=== PATIENT | female | born 1960 | race Caucasian/White ===

== ENCOUNTER 2016-10-26 07:14 | Emergency (ER) | payer OTHER ==
[2016-10-26 07:22] VITALS: RESP 18
[2016-10-26] MEDS ORDERED: ONDANSETRON DISINTEGRATING 4 MG TAB PO ONE (07:27)
--- NOTE | 2016-10-26 07:46 | EDPHY ---
H & P Time Seen by Provider: 10/26/16 07:32 HPI/ROS: CHIEF COMPLAINT: [ ] HISTORY OF PRESENT ILLNESS: [ ] REVIEW OF SYSTEMS: PAST MEDICAL HISTORY: Social history: General Appearance: [Alert and conversant, cooperative.] Emergency Department course/MDM: Smoking Status: Former smoker Constitutional: Initial Vital Signs Temperature (C) 36.7 C 10/26/16 07:18 Heart Rate 58 L 10/26/16 07:18 Respiratory Rate 18 10/26/16 07:18 Blood Pressure 185/99 H 10/26/16 07:18 O2 Sat (%) 97 10/26/16 07:18 O2 Delivery Mode Room Air Allergies/Adverse Reactions: gluten Allergy (Verified 10/26/16 07:18) Home Medications: Medication Instructions Recorded Vitamins 10/26/16 MDM/Departure - MDM Medications Given: Discontinued Medications Ondansetron HCl (Zofran Odt) 4 mg PO EDNOW ONE Stop: 10/26/16 07:28 Last Admin: 10/26/16 07:46 Dose: Not Given - Depart Referrals: NONE *PRIMARY CARE P,. [Primary Care Provider] - As per Instructions
[2016-10-26] MEDS ORDERED: NS 1,000 ML IV ONE ×2 (08:10→09:23)
[2016-10-26] MEDS ORDERED: HYDROmorphONE/DILAUDID 1 MG/ML SYR IVP ONE ×2 (08:10→10:32)
[2016-10-26 08:12] LABS: LEUKOCYTE ESTERASE,URINE NEGATIVE (NEGATIVE)
[2016-10-26 08:14] LABS: COLOR ORANGE
[2016-10-26] MEDS ORDERED: ONDANSETRON 4 MG/2 ML VIAL ONE (08:26)
[2016-10-26 08:29] LABS: MUCUS TRACE /lpf (NONE-1+)
[2016-10-26] MEDS ORDERED: ONDANSETRON 4 MG/2 ML VIAL IVP ONE ×2 (08:40→10:32)
[2016-10-26 08:42] LABS: % IMMATURE GRANULYOCYTES 0.1 % (0.0-1.1); ABSOLUTE IMMATURE GRANULOCYTES 0.01 10^3/uL (0.00-0.10); ADD DIFF? NO; ADD MORPH? NO; ADD SCAN? NO; ATYPICAL LYMPHOCYTE FLAG 10 (0-99); FRAGMENT RBC FLAG 0 (0-99); HEMATOCRIT 40.3 % (38.0-47.0); HEMOGLOBIN 13.6 g/dL (12.6-16.3); LEFT SHIFT FLG 0 (0-99); LIPEMIA HEMOLYSIS FLAG 80 (0-99); MEAN CELL HEMOGLOBIN 30.8 pg (27.9-34.1); MEAN CELL HEMOGLOBIN CONCENTR. 33.7 g/dL (32.4-36.7); MEAN CELL VOLUME 91.2 fL (81.5-99.8); MEAN PLATELET VOLUME 10.4 fL (8.7-11.7); PLATELET CLUMPS FLAG 0 (0-99); PLATELET COUNT 190 10^3/uL (150-400); RED BLOOD CELL COUNT 4.42 10^6/uL (4.18-5.33); RED CELL DISTRIBUTION WIDTH 12.4 % (11.5-15.2)
[2016-10-26 08:55] LABS: ALANINE AMINOTRANSFERASE 36 IU/L (9-52); ALBUMIN 4.2 g/dL (3.5-5.0); ALKALINE PHOSPHATASE 81 IU/L (38-126); ANION GAP 10 mEq/L (8-16); ASPARTATE AMINOTRANSFERASE 29 IU/L (14-46); BILIRUBIN,TOTAL 0.7 mg/dL (0.1-1.4); BILIRUBIN-UNCONJUGATED 0.7 mg/dL (0.0-1.1); CALCIUM 9.3 mg/dL (8.5-10.4); CARBON DIOXIDE 25 mEq/l (22-31); CHLORIDE 102 mEq/L (97-110); CREATININE 0.8 mg/dL (0.6-1.0); GLOMERULAR FILTRATION RATE > 60; GLUCOSE 139 mg/dL (70-100); POTASSIUM 4.1 mEq/L (3.5-5.2); SODIUM 137 mEq/L (134-144)
[2016-10-26] MEDS ORDERED: IOPAMIDOL (ISOVUE-300) 100 ML BTL IV ONE (09:35)
--- NOTE | 2016-10-26 10:30 | EDPHY ---
H & P Stated Complaint: lower abd pain since last night, nausea, dysuria - Personal History Current Tetanus/Diphtheria Vaccine: No Current Tetanus Diphtheria and Acellular Pertussis (TDAP): No - Medical/Surgical History Hx Asthma: No Hx Chronic Respiratory Disease: No Hx Diabetes: No Hx Cardiac Disease: No Hx Renal Disease: No Hx Cirrhosis: No Hx Alcoholism: No Hx HIV/AIDS: No Hx Splenectomy or Spleen Trauma: No Other PMH: pmh- uti's - Social History Smoking Status: Former smoker Time Seen by Provider: 10/26/16 07:32 HPI/ROS: Chief complaint: Urinary symptoms History of present illness: This is a 56-year-old female who presents to the emergency department for evaluation of urinary symptoms. Patient reports the onset of symptoms last night. She reports urinary frequency and urinary hesitancy. She has had associated dysuria. She further reports associated nausea and vomiting. She has developed abdominal discomfort, she describes a fullness in the abdomen most notably on the right. She denies precipitating factors. She denies alleviating factors. She denies other associated signs or symptoms including no fevers, no diarrhea or constipation. Review of systems: A 10 point review of systems was obtained and other than described above was negative (John Paul Zaidi) - Physical Exam Exam: General Appearance: Alert, nontoxic. Eyes: Pupils equal and round no pallor or injection. ENT, Mouth: Mucous membranes moist. Respiratory: There are no retractions, lungs are clear to auscultation. Cardiovascular: Regular rate and rhythm. Gastrointestinal: Bowel sounds are normal. Abdomen is soft and nondistended. She reports a fullness most pronounced in the right lower quadrant on palpation although not specific tenderness. There are no peritoneal signs. Genitourinary: No CVA tenderness. Neurological: Alert and oriented x4. Strength and sensation intact and symmetrical. Skin: Warm and dry, no rashes. Musculoskeletal: Neck is supple non tender. Extremities are symmetrical, full range of motion. Psychiatric: Patient is oriented X 3, there is no agitation. (John Paul Zaidi) Constitutional: Initial Vital Signs Temperature (C) 36.7 C 10/26/16 07:18 Heart Rate 58 L 10/26/16 07:18 Respiratory Rate 18 10/26/16 07:18 Blood Pressure 185/99 H 10/26/16 07:18 O2 Sat (%) 97 10/26/16 07:18 O2 Delivery Mode Room Air Allergies/Adverse Reactions: gluten Allergy (Verified 10/26/16 07:18) Home Medications: Medication Instructions Recorded Hydrocodone/APAP 5/325 [Troy 1 tab PO Q4 #10 tab 10/26/16 5/325 (*)] Ondansetron Odt [Zofran Odt 4 mg 4 mg PO Q4 #10 tab 10/26/16 (*)] Vitamins 10/26/16 Medical Decision Making - Diagnostics Imaging: Right lower quadrant ultrasound nondiagnostic CT scan of the abdomen pelvis reveals a 4 mm right-sided stone at the right UVJ (John Paul Zaidi) ED Course/Re-evaluation: Patient seen in conjunction with my secondary supervising physician Dr. Pteros Her. Patient presents to the emergency department for evaluation of urinary symptoms and abdominal fullness. Ultimately she appears to be suffering from a kidney stone. She has been symptomatically treated and is feeling well. Tolerating oral challenges. She is comfortable being discharged home. She will be discharged home with pain medication, nausea medicine and a urinary strainer. We have discussed the use of Flomax to help facilitate the passage of the stone, she has declined the medication. She is referred to Urology for further evaluation and care. Strict return precautions are given. Patient voiced understanding and agreement with plan. (John Paul Zaidi) Differential Diagnosis: Included but not limited to urinary tract infection, kidney stone, appendicitis , colitis, diverticulitis, pelvic pathology including ovarian cysts and pelvic infections (John Paul Zaidi) Other Provider: PHYSICIAN DOCUMENTATION: The patient was evaluated and managed by the Physician General Scrap Worker and myself. I have reviewed the chart and agree with the findings and plan of care as documented. In addition, I examined the patient myself at 1029. History confirmed as right-sided abdominal pain, starting yesterday. Has some urinary symptoms. Physical findings as follows: Abdomen nontender. Findings of renal colic seen on CT discussed in detail with the patient. She is comfortable and her symptoms have been managed she is agreeable with outpatient management. She is informed that it is likely although not certain that she will pass the stone without further intervention. I am the secondary supervising physician. (Petros Her) - Data Points Laboratory Results: Laboratory Results 10/26/16 08:30 10/26/16 08:30 10/26/16 10/26/16 10/26/16 08:30 08:30 07:17 WBC 7.67 10^3/uL 10^3/uL (3.80-9.50) RBC 4.42 10^6/uL 10^6/uL (4.18-5.33) Hgb 13.6 g/dL g/dL (12.6-16.3) Hct 40.3 % % (38.0-47.0) MCV 91.2 fL fL (81.5-99.8) MCH 30.8 pg pg (27.9-34.1) MCHC 33.7 g/dL g/dL (32.4-36.7) RDW 12.4 % % (11.5-15.2) Plt Count 190 10^3/uL 10^3/uL (150-400) MPV 10.4 fL fL (8.7-11.7) Neut % (Auto) 73.2 % % (39.3-74.2) Lymph % (Auto) 16.3 % % (15.0-45.0) Davie % (Auto) 8.5 % % (4.5-13.0) Eos % (Auto) 1.2 % % (0.6-7.6) Baso % (Auto) 0.7 % % (0.3-1.7) Nucleat RBC Rel Count 0.0 % % (0.0-0.2) Absolute Neuts (auto) 5.62 10^3/uL 10^3/uL (1.70-6.50) Absolute Lymphs (auto) 1.25 10^3/uL 10^3/uL (1.00-3.00) Absolute Monos (auto) 0.65 10^3/uL 10^3/uL (0.30-0.80) Absolute Eos (auto) 0.09 10^3/uL 10^3/uL (0.03-0.40) Absolute Basos (auto) 0.05 10^3/uL 10^3/uL (0.02-0.10) Absolute Nucleated RBC 0.00 10^3/uL 10^3/uL (0-0.01) Immature Gran % 0.1 % % (0.0-1.1) Immature Gran # 0.01 10^3/uL 10^3/uL (0.00-0.10) Sodium 137 mEq/L mEq/L (134-144) Potassium 4.1 mEq/L mEq/L (3.5-5.2) Chloride 102 mEq/L mEq/L (97-110) Carbon Dioxide 25 mEq/l mEq/l (22-31) Anion Gap 10 mEq/L mEq/L (8-16) BUN 15 mg/dL mg/dL (7-23) Creatinine 0.8 mg/dL mg/dL (0.6-1.0) Estimated GFR > 60 Glucose 139 mg/dL H mg/dL (70-100) Calcium 9.3 mg/dL mg/dL (8.5-10.4) Total Bilirubin 0.7 mg/dL mg/dL (0.1-1.4) Conjugated Bilirubin 0.0 mg/dL mg/dL (0.0-0.5) Unconjugated Bilirubin 0.7 mg/dL mg/dL (0.0-1.1) AST 29 IU/L IU/L (14-46) ALT 36 IU/L IU/L (9-52) Alkaline Phosphatase 81 IU/L IU/L (38-126) Total Protein 7.0 g/dL g/dL (6.3-8.2) Albumin 4.2 g/dL g/dL (3.5-5.0) Lipase 124.0 IU/L IU/L (23-300) Urine Color Urine Appearance Urine pH Ur Specific Dittmer Urine Protein Urine Ketones Urine Blood Urine Nitrate Urine Bilirubin Urine Urobilinogen Ur Leukocyte Esterase Urine RBC Urine WBC Ur Epithelial Cells Hyaline Casts Urine Mucus Urine Glucose Urine Test NEGATIVE 10/26/16 07:17 WBC RBC Hgb Hct MCV MCH MCHC RDW Plt Count MPV Neut % (Auto) Lymph % (Auto) Davie % (Auto) Eos % (Auto) Baso % (Auto) Nucleat RBC Rel Count Absolute Neuts (auto) Absolute Lymphs (auto) Absolute Monos (auto) Absolute Eos (auto) Absolute Basos (auto) Absolute Nucleated RBC Immature Gran % Immature Gran # Sodium Potassium Chloride Carbon Dioxide Anion Gap BUN Creatinine Estimated GFR Glucose Calcium Total Bilirubin Conjugated Bilirubin Unconjugated Bilirubin AST ALT Alkaline Phosphatase Total Protein Albumin Lipase Urine Color ORANGE Urine Appearance CLEAR Urine pH 5.0 (5.0-7.5) Ur Specific Dittmer 1.010 (1.002-1.030) Urine Protein TNP Urine Ketones NEGATIVE (NEGATIVE) Urine Blood TNP Urine Nitrate TNP Urine Bilirubin NEGATIVE (NEGATIVE) Urine Urobilinogen TNP Ur Leukocyte Esterase NEGATIVE (NEGATIVE) Urine RBC 5-10 /hpf H /hpf (0-3) Urine WBC 3-5 /hpf H /hpf (0-3) Ur Epithelial Cells TRACE /lpf /lpf (NONE-1+) Hyaline Casts 1-5 /lpf /lpf (0-1) Urine Mucus TRACE /lpf /lpf (NONE-1+) Urine Glucose NEGATIVE (NEGATIVE) Urine Test Medications Given: Discontinued Medications Hydromorphone HCl (Dilaudid) 0.5 mg IVP EDNOW ONE Stop: 10/26/16 08:11 Last Admin: 10/26/16 08:22 Dose: 0.5 mg Hydromorphone HCl (Dilaudid) 0.5 mg IVP EDNOW ONE Stop: 10/26/16 10:33 Last Admin: 10/26/16 10:42 Dose: 0.5 mg Sodium Chloride (Ns) 1,000 mls @ 0 mls/hr IV ONCE ONE PRN Reason: Wide Open Stop: 10/26/16 08:11 Last Admin: 10/26/16 08:20 Dose: 1,000 mls Sodium Chloride (Ns) 1,000 mls @ 0 mls/hr IV ONCE ONE PRN Reason: Wide Open Stop: 10/26/16 09:24 Last Admin: 10/26/16 09:39 Dose: 1,000 mls Ketorolac Tromethamine (Toradol) 30 mg IVP EDNOW ONE Stop: 10/26/16 10:33 Last Admin: 10/26/16 10:42 Dose: 30 mg Ondansetron HCl (Zofran Odt) 4 mg PO EDNOW ONE Stop: 10/26/16 07:28 Last Admin: 10/26/16 07:46 Dose: Not Given Ondansetron HCl (Zofran) 4 mg IVP EDNOW ONE Stop: 10/26/16 08:41 Last Admin: 10/26/16 08:20 Dose: 4 mg Ondansetron HCl (Zofran) 4 mg IVP EDNOW ONE Stop: 10/26/16 10:33 Last Admin: 10/26/16 10:34 Dose: 4 mg Departure - Departure Disposition: Home, Routine, Self-Care Clinical Impression: Kidney stone on right side Condition: Good Instructions: Kidney Stones (ED) Additional Instructions: Please follow-up with Urology for continued evaluation and care Drink plenty of fluids to stay hydrated In regards to pain control see the following: Use ibuprofen 600 mg 3 times a day for the next 2-3 days for pain In addition You have been prescribed Troy for pain. Troy contains Tylenol, do not take extra Tylenol/acetaminophen/Apap with it. It is sedating. Use Zofran as directed as needed for nausea and vomiting Strain your urine as discussed If symptoms worsen or new symptoms develop return to the emergency department for recheck Referrals: NONE *PRIMARY CARE P,. [Primary Care Provider] - As per Instructions Prince Ontiveros MD [Medical Doctor] - As per Instructions Alayna Betancourt MD [Medical Doctor] - As per Instructions Prescriptions: Hydrocodone/APAP 5/325 [Troy 5/325 (*)] 1 tab PO Q4 #10 tab Ondansetron Odt [Zofran Odt 4 mg (*)] 4 mg PO Q4 #10 tab
[2016-10-26] MEDS ORDERED: KETOROLAC 30 MG/1 ML SDV IVP ONE (10:32)
[2016-10-26 10:59] VITALS: BP 139/40; PULSE 76; O2SAT 92
[2016-10-26 11:13] VITALS: TEMP 98.8
== END 2016-10-26 11:12 | disposition home or self-care (01) ==
DX: N20.0 Calculus of kidney (principal); Z87.891 Personal history of nicotine dependence
CPT/HCPCS: 96374; J1170; J1885; J2405; Q9967

== ENCOUNTER 2017-08-16 08:29 | Emergency (ER) | payer OTHER ==
[2017-08-16] MEDS ORDERED: FLUORESCEIN SODIUM 1 MG STRIP OP ONE ×2 (09:02→09:04)
[2017-08-16] MEDS ORDERED: PROPARACAINE 0.5% 15 ML OPHT DROP ONE (09:03)
[2017-08-16] MEDS ORDERED: PROPARACAINE 0.5% 15 ML OPHT DROP EACHEYE ONE (09:04)
--- NOTE | 2017-08-16 09:26 | EDPHY ---
H & P Time Seen by Provider: 08/16/17 08:43 HPI/ROS: CHIEF COMPLAINT: Bilateral eye pain HISTORY OF PRESENT ILLNESS: 57-year-old female presents to the emergency department with bilateral eye irritation. Patient wears daily contacts and took her contacts out last night immediately developed pain. She has had corneal abrasions in the past due to removing her contacts. She believes her tetanus shot is current. Denies any other complaints. ROS: Denies double vision, blurry vision, retained foreign body. Past Medical/Surgical History: Celiac Social History: Smoking Status: Never smoked Physical Exam: Visual Acuity: noted from Nurse's notes. Pupils:equal round and reactive to light EOMI Lids: no edema or swelling Skin: no proptosis, no periorbital erythema or swelling, no vesicles Conjunctivae: Conjunctival injection bilaterally. No discharge. Cornea: After consent was obtained, proparacaine instilled into both eyes with fluorescein strips. Uptake of dye noted to the most superior aspect of the cornea just above the pupil bilaterally. Appears superficial. No evidence of retained foreign body. Remainder of slit-lamp examination is unremarkable. Anterior chamber:normal, no hyphema or hypopyon Constitutional: Initial Vital Signs Temperature (C) 36.7 C 08/16/17 08:31 Heart Rate 58 L 08/16/17 08:31 Respiratory Rate 16 08/16/17 08:31 Blood Pressure 155/89 H 08/16/17 08:31 O2 Sat (%) 98 08/16/17 08:31 O2 Delivery Mode Room Air Allergies/Adverse Reactions: gluten Allergy (Verified 08/16/17 08:30) Home Medications: Medication Instructions Recorded Ofloxacin 0.3% [Ocuflox] 1 - 2 drops EACHEYE QID 7 Days btl 08/16/17 MDM/Departure - MDM Medications Given: Discontinued Medications Fluorescein Sodium ([id number]) 2 mg OP EDNOW ONE Stop: 08/16/17 09:05 Last Admin: 08/16/17 09:21 Dose: 2 mg Proparacaine HCl (Alcaine 0.5%) 1 drops EACHEYE ONCE ONE Stop: 08/16/17 09:05 Last Admin: 08/16/17 09:20 Dose: 1 drop ED Course/Re-evaluation: 57-year-old female presents with bilateral corneal abrasions. The patient will be treated with Ocuflox drops. Her tetanus shot is current. She has an engineering inspection assistant that she will follow up with in 48-72 hr if her symptoms have not completely improved. She was instructed to return to the emergency department if she had any other change in symptoms or felt worse in any way. - Depart Disposition: Home, Routine, Self-Care Clinical Impression: Corneal abrasion of both eyes due to contact lens Condition: Good Instructions: Corneal Abrasion (ED) Additional Instructions: Ocuflox drops 2 drops 4 times daily for 1 week to both eyes to prevent infection. Do not wear contacts for 1 week. Ibuprofen 600mg every 8 hours for pain as directed. Follow up with your engineering inspection assistant or maid cleaning cooking in 48 hr if your symptoms have not completely resolved. Return to the emergency department sooner if you develop visual changes, or if you feel worse in any way. Prescriptions: Ofloxacin 0.3% [Ocuflox] 1 - 2 drops EACHEYE QID 7 Days btl Referrals: Scott Albrecht MD [Medical Doctor] - 2-3 days, if not improved ( Baby Sitter on-call)
[2017-08-16 09:35] VITALS: BP 138/78; PULSE 85; RESP 19; TEMP 97.9; O2SAT 95
== END 2017-08-16 09:37 | disposition home or self-care (01) ==
DX: H18.823 Corneal disorder due to contact lens, bilateral (principal)